=== PATIENT | female | born 1960 | race African-American/Black ===

== ENCOUNTER 2018-05-26 12:34 | Inpatient (IN) | payer OTHER ==
[2018-05-26 15:11] VITALS: BMI 27.6
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
[2018-05-26] MEDS ORDERED: MAGNESIUM HYDROX 2400MG/30ML ORAL SUSPENSION 30 ML CUP PO PRN (17:19)
[2018-05-26] MEDS ORDERED: ACETAMINOPHEN 325 MG TABLET (FP) PO PRN (17:19)
[2018-05-26] MEDS ORDERED: chlordiazePOXIDE HCL 25 MG CAPSULE PO PRN (17:19)
[2018-05-26] MEDS ORDERED: MAG HYDROX/AL HYDROX/SIMETH 30 ML UNIT-DOSE CUP PO PRN (17:19)
[2018-05-26] MEDS ORDERED: MENTHOL/PHENOL 1 EACH UD MM PRN (17:19)
[2018-05-26] MEDS ORDERED: NICOTINE POLACRILEX 2 MG GUM BC PRN (17:19)
[2018-05-26] MEDS ORDERED: IBUPROFEN 400 MG TABLET (FP) PO PRN (17:19)
[2018-05-26] MEDS ORDERED: P-EPHED 60MG/TRIPROLIDI 2.5MG TABLET PO PRN (17:19)
[2018-05-26] MEDS ORDERED: guaiFENesin/D-METHORPHAN HB 10 ML UNIT-DOSE CUPS PO PRN (17:19)
[2018-05-26] MEDS ORDERED: hydrOXYzine PAMOATE 50 MG CAPSULE (FP) PO PRN (17:19)
[2018-05-26] MEDS ORDERED: MAGNESIUM CITRATE 300 ML BOTTLE PO PRN (17:19)
[2018-05-26] MEDS ORDERED: LOPERAMIDE HCL 2 MG CAPSULE PO PRN (17:19)
[2018-05-26] MEDS ORDERED: MELATONIN 5 MG TABLETS PO PRN (22:00)
[2018-05-26] MEDS: chlordiazePOXIDE HCL 25 MG CAPSULE PO SCH (22:22)
[2018-05-26] MEDS: THIAMINE HCL 100 MG TABLET (FP) PO SCH (22:22)
[2018-05-27 01:42] LABS: URINE APPEARANCE CLEAR; URINE BILIRUBIN NEGATIVE (<2.0 mg/dL); URINE COLOR YELLOW; URINE GLUCOSE (UA) NEGATIVE (NEGATIVE); URINE KETONE NEGATIVE (NEGATIVE); URINE LEUK ESTERASE NEGATIVE (NEGATIVE); URINE NITRITE NEGATIVE (NEGATIVE); URINE PROTEIN NEGATIVE (NEGATIVE)
[2018-05-27 02:02] LABS: EPI CELLS RARE /HPF (FEW); URINE BACTERIA RARE /hpf (NONE SEEN); URINE HYALINE CAST 3 /lpf; URINE MUCUS MODERATE
[2018-05-27] MEDS: chlordiazePOXIDE HCL 25 MG CAPSULE PO SCH ×4 (06:08→22:52)
--- NOTE | 2018-05-27 11:11 | PN ---
[facility] CIWA - CIWA Score Nausea/Vomitin-No Nausea/No Vomiting Muscle Tremors: 3 Anxiety: 2 Agitation: 2 Paroxysmal Sweats: 3 Orientation: 0-Oriented Tacttile Disturbances: 0-None Auditory Disturbances: 0-None Visual Disturbances: 0-None Headache: 0-None Present CIWA-Ar Total Score: 10 S Progress Note (SOAP) Subjective: interrupted sleep sweats mild shakes anxiety Objective: 05/27/18 11:10 Vital Signs Temperature 97.9 F 05/27/18 09:51 Pulse Rate 79 05/27/18 09:51 Respiratory Rate 18 05/27/18 09:51 Blood Pressure 129/79 05/27/18 09:51 O2 Sat by Pulse Oximetry (%) Laboratory Tests 05/27/18 00:01 Urine Color Yellow Urine Appearance Clear Urine pH 5.0 Ur Specific [place] 1.025 Urine Protein Negative Urine Glucose (UA) Negative Urine Ketones Negative Urine Blood 1+ H Urine Nitrite Negative Urine Bilirubin Negative Urine Urobilinogen 2.0 H Ur Leukocyte Esterase Negative Urine WBC (Auto) 6 Urine RBC (Auto) 1 Ur Epithelial Cells Rare Urine Bacteria Rare Hyaline Casts 3 Urine Mucus Moderate rest of labs pending aaox3 ambulating no acute distress Assessment: 05/27/18 11:10 withdrawal sx Plan: continue detox increase fluids labs pending
[2018-05-27] MEDS: PRENATAL VITAMINS W/ FOLIC ACID TABLET (FP) PO SCH (11:25)
[2018-05-27] MEDS: NICOTINE 14 MG/24 HOURS TOPICAL PATCH TD SCH (11:25)
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
[2018-05-27] MEDS: THIAMINE HCL 100 MG TABLET (FP) PO SCH (22:52)
[2018-05-28] MEDS: chlordiazePOXIDE HCL 25 MG CAPSULE PO SCH ×3 (06:44→17:27)
--- NOTE | 2018-05-28 09:52 | EKG ---
Test Reason : Blood Pressure : / mmHG Vent. Rate : 068 BPM Atrial Rate : 068 BPM P-R Int : 182 ms QRS Dur : 086 ms QT Int : 404 ms P-R-T Axes : 054 054 051 degrees QTc Int : 429 ms NORMAL SINUS RHYTHM WITH SINUS ARRHYTHMIA NORMAL ECG NO PREVIOUS ECGS AVAILABLE Confirmed by MARGARITO VO MD ([id number]) on 05/28/2018 9:52:19 AM Referred By: Confirmed By:MARGARITO OV MD
[2018-05-28 10:21] LABS: WHITE BLOOD COUNT 3.7 K/mm3 (4.0-10.0)
[2018-05-28 10:24] LABS: HEMATOCRIT 44.5 % (32.4-45.2); HEMOGLOBIN 14.5 GM/dL (10.7-15.3); MCH 31.1 pg (25.7-33.7); MCHC 32.7 g/dl (32.0-36.0); PLATELET COUNT 233 K/MM3 (134-434); RBC 4.68 M/mm3 (3.60-5.2); RDW 14.2 % (11.6-15.6)
[2018-05-28] MEDS: NICOTINE 14 MG/24 HOURS TOPICAL PATCH TD SCH (10:59)
[2018-05-28] MEDS: PRENATAL VITAMINS W/ FOLIC ACID TABLET (FP) PO SCH (10:59)
[2018-05-28 11:15] LABS: ALK PHOS 120 U/L (45-117); ANION GAP 9 MMOL/L (8-16); BILIRUBIN,TOTAL 0.3 mg/dL (0.2-1); BLOOD UREA NITROGEN 13 mg/dL (7-18); CALCIUM 8.4 mg/dL (8.5-10.1); CHLORIDE 111 mmol/L (98-107); CO2 24 mmol/L (21-32); CREATININE 0.6 mg/dL (0.55-1.3); GLUCOSE,RANDOM 75 mg/dL (74-106); POTASSIUM 4.8 mmol/L (3.5-5.1); SGOT/AST 10 U/L (15-37); SGPT/ALT 18 U/L (13-61); SODIUM 143 mmol/L (136-145)
--- NOTE | 2018-05-28 16:10 | PN ---
S CIWA - CIWA Score Nausea/Vomitin-Mild Nausea/No Vomiting Muscle Tremors: 3 Anxiety: 2 Agitation: 2 Paroxysmal Sweats: 1-Minimal Palms Moist Orientation: 0-Oriented Tacttile Disturbances: 0-None Auditory Disturbances: 0-None Visual Disturbances: 0-None Headache: 0-None Present CIWA-Ar Total Score: 9 BHS Progress Note (SOAP) Subjective: sweat tremor anxiety trouble sleep at night Objective: 05/28/18 16:10 Vital Signs Temperature 96.9 F L 05/28/18 14:59 Pulse Rate 69 05/28/18 14:59 Respiratory Rate 18 05/28/18 14:59 Blood Pressure 122/66 05/28/18 14:59 O2 Sat by Pulse Oximetry (%) Laboratory Last Values WBC 3.7 K/mm3 (4.0-10.0) L 05/28/18 07:00 RBC 4.68 M/mm3 (3.60-5.2) 05/28/18 07:00 Hgb 14.5 GM/dL (10.7-15.3) 05/28/18 07:00 Hct 44.5 % (32.4-45.2) 05/28/18 07:00 MCV 95.0 fl (80-96) 05/28/18 07:00 MCH 31.1 pg (25.7-33.7) 05/28/18 07:00 MCHC 32.7 g/dl (32.0-36.0) 05/28/18 07:00 RDW 14.2 % (11.6-15.6) 05/28/18 07:00 Plt Count 233 K/MM3 (134-434) 05/28/18 07:00 MPV 9.0 fl (7.5-11.1) 05/28/18 07:00 Sodium 143 mmol/L (136-145) 05/28/18 07:00 Potassium 4.8 mmol/L (3.5-5.1) 05/28/18 07:00 Chloride 111 mmol/L (98-107) H 05/28/18 07:00 Carbon Dioxide 24 mmol/L (21-32) 05/28/18 07:00 Anion Gap 9 MMOL/L (8-16) 05/28/18 07:00 BUN 13 mg/dL (7-18) 05/28/18 07:00 Creatinine 0.6 mg/dL (0.55-1.3) 05/28/18 07:00 Creat Clearance w eGFR > 60 (>60) 05/28/18 07:00 Random Glucose 75 mg/dL (74-106) 05/28/18 07:00 Calcium 8.4 mg/dL (8.5-10.1) L 05/28/18 07:00 Total Bilirubin 0.3 mg/dL (0.2-1) 05/28/18 07:00 AST 10 U/L (15-37) L 05/28/18 07:00 ALT 18 U/L (13-61) 05/28/18 07:00 Alkaline Phosphatase 120 U/L (45-117) H 05/28/18 07:00 Total Protein 6.0 g/dl (6.4-8.2) L 05/28/18 07:00 Albumin 3.0 g/dl (3.4-5.0) L 05/28/18 07:00 Urine Color Yellow 05/27/18 00:01 Urine Appearance Clear 05/27/18 00:01 Urine pH 5.0 (5.0-8.0) 05/27/18 00:01 Ur Specific [place] 1.025 (1.010-1.035) 05/27/18 00:01 Urine Protein Negative (NEGATIVE) 05/27/18 00:01 Urine Glucose (UA) Negative (NEGATIVE) 05/27/18 00:01 Urine Ketones Negative (NEGATIVE) 05/27/18 00:01 Urine Blood 1+ (NEGATIVE) H 05/27/18 00:01 Urine Nitrite Negative (NEGATIVE) 05/27/18 00:01 Urine Bilirubin Negative (<2.0 mg/dL) 05/27/18 00:01 Urine Urobilinogen 2.0 mg/dL (0.2-1.0) H 05/27/18 00:01 Ur Leukocyte Esterase Negative (NEGATIVE) 05/27/18 00:01 Urine WBC (Auto) 6 /hpf (3-5) 05/27/18 00:01 Urine RBC (Auto) 1 /hpf (0-3) 05/27/18 00:01 Ur Epithelial Cells Rare /HPF (FEW) 05/27/18 00:01 Urine Bacteria Rare /hpf (NONE SEEN) 05/27/18 00:01 Hyaline Casts 3 /lpf 05/27/18 00:01 Urine Mucus Moderate 05/27/18 00:01 RPR Titer Nonreactive (NONREACTIVE) 05/28/18 07:00 lab noted Assessment: 05/28/18 16:13 withdrawal sx Plan: continue detox
[2018-05-28] MEDS: THIAMINE HCL 100 MG TABLET (FP) PO SCH (22:25)
[2018-05-28] MEDS: chlordiazePOXIDE 5 MG CAPSULE PO SCH (22:25)
[2018-05-29] MEDS: chlordiazePOXIDE 5 MG CAPSULE PO SCH ×3 (06:59→17:41)
[2018-05-29] MEDS: PRENATAL VITAMINS W/ FOLIC ACID TABLET (FP) PO SCH (10:57)
[2018-05-29] MEDS: NICOTINE 14 MG/24 HOURS TOPICAL PATCH TD SCH (10:58)
--- NOTE | 2018-05-29 15:09 | PN ---
BHS Progress Note (SOAP) Subjective: feeling better less tremor no sweat no gi distress Objective: 05/29/18 15:08 Vital Signs Temperature 97.9 F 05/29/18 13:44 Pulse Rate 100 H 05/29/18 13:44 Respiratory Rate 18 05/29/18 13:44 Blood Pressure 125/68 05/29/18 13:44 O2 Sat by Pulse Oximetry (%) Laboratory Last Values WBC 3.7 K/mm3 (4.0-10.0) L 05/28/18 07:00 RBC 4.68 M/mm3 (3.60-5.2) 05/28/18 07:00 Hgb 14.5 GM/dL (10.7-15.3) 05/28/18 07:00 Hct 44.5 % (32.4-45.2) 05/28/18 07:00 MCV 95.0 fl (80-96) 05/28/18 07:00 MCH 31.1 pg (25.7-33.7) 05/28/18 07:00 MCHC 32.7 g/dl (32.0-36.0) 05/28/18 07:00 RDW 14.2 % (11.6-15.6) 05/28/18 07:00 Plt Count 233 K/MM3 (134-434) 05/28/18 07:00 MPV 9.0 fl (7.5-11.1) 05/28/18 07:00 Sodium 143 mmol/L (136-145) 05/28/18 07:00 Potassium 4.8 mmol/L (3.5-5.1) 05/28/18 07:00 Chloride 111 mmol/L (98-107) H 05/28/18 07:00 Carbon Dioxide 24 mmol/L (21-32) 05/28/18 07:00 Anion Gap 9 MMOL/L (8-16) 05/28/18 07:00 BUN 13 mg/dL (7-18) 05/28/18 07:00 Creatinine 0.6 mg/dL (0.55-1.3) 05/28/18 07:00 Creat Clearance w eGFR > 60 (>60) 05/28/18 07:00 Random Glucose 75 mg/dL (74-106) 05/28/18 07:00 Calcium 8.4 mg/dL (8.5-10.1) L 05/28/18 07:00 Total Bilirubin 0.3 mg/dL (0.2-1) 05/28/18 07:00 AST 10 U/L (15-37) L 05/28/18 07:00 ALT 18 U/L (13-61) 05/28/18 07:00 Alkaline Phosphatase 120 U/L (45-117) H 05/28/18 07:00 Total Protein 6.0 g/dl (6.4-8.2) L 05/28/18 07:00 Albumin 3.0 g/dl (3.4-5.0) L 05/28/18 07:00 Urine Color Yellow 05/27/18 00:01 Urine Appearance Clear 05/27/18 00: Urine pH 5.0 (5.0-8.0) 05/27/18 00:01 Ur Specific [place] 1.025 (1.010-1.035) 05/27/18 00:01 Urine Protein Negative (NEGATIVE) 05/27/18 00:01 Urine Glucose (UA) Negative (NEGATIVE) 05/27/18 00: Urine Ketones Negative (NEGATIVE) 05/27/18 00:01 Urine Blood 1+ (NEGATIVE) H 05/27/18 00:01 Urine Nitrite Negative (NEGATIVE) 05/27/18 00:01 Urine Bilirubin Negative (<2.0 mg/dL) 05/27/18 00:01 Urine Urobilinogen 2.0 mg/dL (0.2-1.0) H 05/27/18 00:01 Ur Leukocyte Esterase Negative (NEGATIVE) 05/27/18 00: Urine WBC (Auto) 6 /hpf (3-5) 05/27/18 00:01 Urine RBC (Auto) 1 /hpf (0-3) 05/27/18 00:01 Ur Epithelial Cells Rare /HPF (FEW) 05/27/18 00:01 Urine Bacteria Rare /hpf (NONE SEEN) 05/27/18 00:01 Hyaline Casts 3 /lpf 05/27/18 00:01 Urine Mucus Moderate 05/27/18 00:01 RPR Titer Nonreactive (NONREACTIVE) 05/28/18 07:00 lab noted Assessment: 05/29/18 15:09 mild withdrawal sx Plan: medically supervised detox
--- NOTE | 2018-05-29 15:17 | PN ---
BHS Progress Note (SOAP) Subjective: feeling better no tremor less sweat social with peers in day room discuss aftercare
[2018-05-29 17:40] VITALS: PULSE 85
[2018-05-29] MEDS: THIAMINE HCL 100 MG TABLET (FP) PO SCH (22:31)
[2018-05-29] MEDS: chlordiazePOXIDE HCL 10 MG CAPSULE PO SCH (22:33)
[2018-05-30] MEDS: chlordiazePOXIDE HCL 10 MG CAPSULE PO SCH (05:52)
--- NOTE | 2018-05-30 08:56 | DS ---
[facility] Detox Discharge Summary Admission Date: 05/26/18 Discharge Date: 05/30/18 - History Present History: Alcohol Dependence, Cocaine Dependence - Physical Exam Results Vital Signs: Vital Signs Temperature 98.1 F 05/29/18 17:40 Pulse Rate 85 05/29/18 17:40 Respiratory Rate 16 05/30/18 03:30 Blood Pressure 94/60 05/29/18 17:40 O2 Sat by Pulse Oximetry (%) - Treatment Hospital Course: Detox Protocol Followed, Detoxed Safely, Responded well, Discharged Condition Good, Rehab Referral Accepted - Medication Discharge Medications: Ambulatory Orders NK [No Known Home Medication] 05/26/18 - Diagnosis (1) Alcohol dependence with withdrawal Current Visit: Yes Status: Chronic Qualifiers: Complication of substance-induced condition: uncomplicated Qualified Code(s ): F10.230 - Alcohol dependence with withdrawal, uncomplicated (2) Substance induced mood disorder Current Visit: Yes Status: Chronic (3) Cocaine dependence Current Visit: Yes Status: Chronic Qualifiers: Substance use status: uncomplicated Qualified Code(s): F14.20 - Cocaine dependence, uncomplicated (4) Nicotine dependence Current Visit: Yes Status: Chronic Qualifiers: Nicotine product type: cigarettes (5) Psychiatric disorder Current Visit: Yes Status: Suspected - AMA Did Patient Leave Against Medical Advice: No ([facility])
[2018-05-30 10:00] VITALS: BP 103/77; TEMP 97.2
== END 2018-05-30 09:23 | disposition home or self-care (01) | DRG 774 ==
LOC: YASAS 12:34 → Y6N 16:45
PROC: HZ2ZZZZ Detoxification Services for Substance Abuse Treatment (ICD-10-PCS; principal; 2018-05-26)
DX: F10.230 Alcohol dependence with withdrawal, uncomplicated (principal); F14.20 Cocaine dependence, uncomplicated; F17.210 Nicotine dependence, cigarettes, uncomplicated; F19.24 Other psychoactive substance dependence with psychoactive substance-induced mood disorder; F31.9 Bipolar disorder, unspecified; F20.9 Schizophrenia, unspecified
CPT/HCPCS: 36415; 71046-TC-FY; 80053; 81003; 81015; 85027; 86593; 93005; 93010